=== PATIENT | female | born 1955 | race Caucasian/White ===

== ENCOUNTER 2021-11-10 14:00 | Outpatient (CLI) | payer MEDICARE | END 2021-11-10 14:01 | disposition home or self-care (01) | LOC: CSHMAMMO 14:00 | PROVIDERS: ATTEND Student in an Organized Health Care Education/Training Program | DX: Z12.31 Encounter for screening mammogram for malignant neoplasm of breast (principal); Z80.3 Family history of malignant neoplasm of breast | CPT/HCPCS: 77063; 77067 ==

== ENCOUNTER 2023-02-23 10:07 | Outpatient (CLI) | payer MEDICARE | END 2023-02-23 10:08 | disposition home or self-care (01) | LOC: CSHMAMMO 10:07 | PROVIDERS: ATTEND Internal Medicine Gastroenterology | DX: Z12.31 Encounter for screening mammogram for malignant neoplasm of breast (principal); Z80.3 Family history of malignant neoplasm of breast | CPT/HCPCS: 77063; 77067 ==

== ENCOUNTER 2024-02-26 10:28 | Outpatient (CLI) | payer MEDICARE | END 2024-02-26 10:29 | disposition home or self-care (01) | LOC: CSHMAMMO 10:28 | PROVIDERS: ATTEND Family Medicine | DX: Z12.31 Encounter for screening mammogram for malignant neoplasm of breast (principal); Z78.0 Asymptomatic menopausal state; M85.851 Other specified disorders of bone density and structure, right thigh; M85.852 Other specified disorders of bone density and structure, left thigh; Z80.3 Family history of malignant neoplasm of breast | CPT/HCPCS: 77063; 77067; 77080 ==